=== PATIENT | female | born 1975 | race Two or more races ===

== ENCOUNTER 2019-09-17 15:07 | Emergency (ER) | payer OTHER ==
[~2019-09-17] VITALS: Ht 175.3 cm; Wt 99.8 kg
--- NOTE | 2019-09-17 15:32 | NUR ---
PT C/O OF EYE IRRITATION ON RIGHT EYE FOR 2x DAYS. PT HAS BEEN BEEN PLACING [place] TEA BAG UNDER THE EYE TO HELP WITH IRRITATION. NO SOB. NO DISTRESS NOTED. PATIENT ASSESSED WITH VISUAL ACUITY. WILL CONTINUE TO MONITOR
[2019-09-17] MEDS ORDERED: FLUORESCEIN SODIUM OPHTH 1 EA STRIP ONE (15:39)
[2019-09-17 16:01] VITALS: BP 130/78
[2019-09-17] MEDS ORDERED: TETRACAINE HCL 0.5% OPHTALMIC 15 ML BOTTLE OP ONE (16:30)
[2019-09-17] MEDS ORDERED: FLUORESCEIN SODIUM OPHTH 1 EA STRIP OP ONE (16:30)
== END 2019-09-17 18:14 | disposition home or self-care (01) ==
LOC: ER 15:13
DX: H11.001 Unspecified pterygium of right eye (principal); Z98.890 Other specified postprocedural states; Z88.0 Allergy status to penicillin; Z60.2 Problems related to living alone

== ENCOUNTER 2021-11-16 21:00 | Emergency (ER) | payer OTHER ==
[~2021-11-16] VITALS: Ht 175.3 cm; Wt 110.7 kg
--- NOTE | 2021-11-16 21:50 | NUR ---
BIBS C/O ATRAUMATIC L LEG PAIN SINCE SATURDAY. WAS PREVIOUSLY EVALUATED AND HAD XRAY DONE -FX. NO WOUNDS,NO SIGNIFICANT SWELLING OR BRUISING NOTED TO EXTREMITY PEDAL PULSES PRESENT AND EQUAL BILATERALLY. CHANGED INTO GOWN AND PLACED ON MONITOR AND ALL V/S STABLE.
[2021-11-16] MEDS ORDERED: IBUPROFEN 400 MG TABLET ONE (22:32)
[2021-11-16] MEDS: IBUPROFEN 400 MG TABLET PO ONE (22:36)
--- NOTE | 2021-11-16 23:56 | NUR ---
Patient discharged to home in stable condition. Written and verbal after care instructions given. Patient verbalizes understanding of instruction. Pt ambulatory with a steady gait
[2021-11-17 00:38] VITALS: BP 133/51
== END 2021-11-16 23:59 | disposition home or self-care (01) ==
LOC: ER 21:08
DX: M79.662 Pain in left lower leg (principal); Z88.0 Allergy status to penicillin
CPT/HCPCS: 93971-TC

== ENCOUNTER 2023-04-09 00:29 | Emergency (ER) | payer MEDICAID, OTHER ==
[~2023-04-09] VITALS: Ht 170.2 cm; Wt 90.7 kg
--- NOTE | 2023-04-09 00:36 | NUR ---
BIBS FOR C/O DIZZINESS & C. PT A/OX4. TOLERATING R/A WELL WITH NO RESP DISTRESS. CONNECTED PT TO POX AND MONITOR. SAFETY MEASURES IN PLACE.
[2023-04-09] MEDS ORDERED: MECLIZINE HCL 25 MG TABLET ONE (00:49)
[2023-04-09] MEDS ORDERED: MECLIZINE HCL 25 MG TABLET PO ONE (01:00)
--- NOTE | 2023-04-09 01:03 | NUR ---
RAC #18G S/L BLOOD COLLECTED AND SENT TO LAB
[2023-04-09 01:41] LABS: BASOPHILS # (AUTO) 0.1 K/uL (0.0-0.2); BASOPHILS % (AUTO) 1.5 % (0.0-2.0); EOSINOPHILS % (AUTO) 1.6 % (0.0-6.0); HEMATOCRIT 32 % (33-45); HEMOGLOBIN 9.9 g/dL (11.5-14.8); LYMPHOCYTES # (AUTO) 1.6 K/uL (0.8-4.8); LYMPHOCYTES % (AUTO) 29.2 % (20.0-44.0); MEAN CORPUSCULAR HGB CONC 31 g/dl (31.0-36.0); MEAN CORPUSCULAR VOLUME 80 fL (82-100); MONOCYTES # (AUTO) 0.4 K/uL (0.1-1.30); MONOCYTES % (AUTO) 6.9 % (2.0-12.0); NEUTROPHILS # (AUTO) 3.3 K/uL (1.8-8.9); NEUTROPHILS % (AUTO) 60.8 % (43.0-81.0); PLATELET COUNT (AUTO) 387 K/uL (150-450); RED BLOOD CELL COUNT(AUTO) 4.04 MIL/uL (4.0-5.2); WHITE BLOOD COUNT (AUTO) 5.4 K/uL (4.3-11.0)
[2023-04-09 02:07] LABS: CALCIUM, SERUM 9.7 mg/dL (8.5-10.1); CARBON DIOXIDE 29 mmol/L (21-32); CHLORIDE 105 mmol/L (98-107); CREATININE 0.8 mg/dL (0.6-1.3); GLUCOSE 108 mg/dL (74-106); POTASSIUM 4.1 mmol/L (3.5-5.1); SODIUM SERUM 141 mmol/L (136-145); UREA NITROGEN, BLOOD 21 mg/dL (7-18)
[2023-04-09 04:11] VITALS: BP 91/56
== END 2023-04-09 04:58 | disposition home or self-care (01) ==
LOC: ER 00:30
DX: R07.9 Chest pain, unspecified (principal); R42 Dizziness and giddiness; Z88.0 Allergy status to penicillin; Z60.2 Problems related to living alone
CPT/HCPCS: 99285; 71045; 93005; 85025; 80048; 36415; 84484 ×2; J8597; J7030